=== PATIENT | male | born 1980 | race African-American/Black ===

== ENCOUNTER 2021-10-10 11:07 | Inpatient (IN) | payer OTHER ==
[~2021-10-10] VITALS: Ht 165.1 cm; Wt 127.5 kg
--- NOTE | 2021-10-10 11:10 | NUR ---
COVID TEST COLLECTED AND SENT TO LAB
--- NOTE | 2021-10-10 11:15 | NUR ---
BIB [facility] HALFWAY FOR ON AND OFF CHEST PAIN/SOB X 4 DAYS. PT A/OX4; TOLERATING RA WELL AT THIS TIME WITH NO SOB. DENIES PAIN AT THIS TIME
--- NOTE | 2021-10-10 11:26 | NUR ---
MORALE OFFICER AT PT'S BEDSIDE
--- NOTE | 2021-10-10 11:44 | NUR ---
INSERTED IV RAC #20G S/L; PATEND AND INTACT.
--- NOTE | 2021-10-10 11:45 | NUR ---
LABS WERE COLLECTED AND SENT TO LAB
[2021-10-10] MEDS ORDERED: IOHEXOL-350 100 ML VIAL IV ONE (11:50)
[2021-10-10] MEDS ORDERED: CT SWABBABLE VALVE TRANS SET 1 EA INFUS.SET MC ONE (11:50)
[2021-10-10] MEDS ORDERED: IV NS 0.9% 250 ML IV ONE (11:50)
--- NOTE | 2021-10-10 11:52 | NUR ---
PT TAKEN TO CT VIA KO
[2021-10-10 11:53] LABS: BASOPHILS % (AUTO) 0.4 % (0.0-2.0); EOSINOPHILS % (AUTO) 2.6 % (0.0-6.0); HEMATOCRIT 38 % (39-51); HEMOGLOBIN 12.5 g/dL (13.5-17.5); LYMPHOCYTES # (AUTO) 2.2 K/uL (0.8-4.8); LYMPHOCYTES % (AUTO) 18.3 % (20.0-44.0); MEAN CORPUSCULAR HGB CONC 33 g/dl (31.0-36.0); MEAN CORPUSCULAR VOLUME 93 fL (80-96); MONOCYTES # (AUTO) 1.2 K/uL (0.1-1.30); NEUTROPHILS # (AUTO) 8.3 K/uL (1.8-8.9); NEUTROPHILS % (AUTO) 68.7 % (43.0-81.0); PLATELET COUNT (AUTO) 404 K/uL (150-450); WHITE BLOOD COUNT (AUTO) 12.1 K/uL (4.3-11.0)
[2021-10-10] MEDS ORDERED: ALBU8.5H8 IH (11:56)
[2021-10-10] MEDS ORDERED: DOCU-141 PO (11:57)
[2021-10-10] MEDS ORDERED: MAGN400O6 PO (11:57)
[2021-10-10] MEDS ORDERED: NA P133E RC (11:57)
[2021-10-10] MEDS ORDERED: IBUP-1953 PO (11:57)
[2021-10-10] MEDS ORDERED: BENZ200C53 PO (11:57)
[2021-10-10] MEDS ORDERED: BISA10SU11 RC (11:57)
[2021-10-10] MEDS ORDERED: IPRA0.2S9 IH (11:57)
[2021-10-10] MEDS ORDERED: APIX5TAB PO (11:57)
[2021-10-10] MEDS ORDERED: FLUT1BLS IH (11:57)
[2021-10-10] MEDS ORDERED: METF-440 PO (11:57)
[2021-10-10] MEDS ORDERED: FAMO20TA8 PO (11:57)
[2021-10-10] MEDS ORDERED: CHOL100062 PO (11:57)
[2021-10-10] MEDS ORDERED: ASCO-352 PO (11:57)
--- NOTE | 2021-10-10 12:04 | NUR ---
PT RETURNED TO ER BED [address]
[2021-10-10 12:05] LABS: CARBON DIOXIDE 30 mmol/L (21-32); CHLORIDE 105 mmol/L (98-107); CREATININE 0.8 mg/dL (0.6-1.3); GLUCOSE 122 mg/dL (74-106); POTASSIUM 3.7 mmol/L (3.5-5.1); SODIUM SERUM 142 mmol/L (136-145); UREA NITROGEN, BLOOD 9 mg/dL (7-18)
[2021-10-10 12:20] LABS: ALANINE AMINOTRANSFERASE 42 U/L (12-78); ALBUMIN 3.1 g/dL (3.4-5.0); ALKALINE PHOSPHATASE 43 U/L (46-116); ASPARTATE AMINOTRANSFERASE 15 U/L (15-37); BILIRUBIN,DIRECT 0.1 mg/dL (0.0-0.2); BILIRUBIN,TOTAL 0.2 mg/dL (0.2-1.0); TOTAL PROTEIN, SERUM 6.9 g/dL (6.4-8.2)
[2021-10-10] MEDS ORDERED: DEXAMETHASONE SOD PHOSPHATE 10 MG/ML VIAL IV ONE (13:00)
[2021-10-10] MEDS ORDERED: DEXAMETHASONE SOD PHOSPHATE 10 MG/ML VIAL ONE (13:29)
--- NOTE | 2021-10-10 17:03 | NUR ---
REPORT GIVEN TO ANISH SANFORD. AWAITING TRANSFER TO FLOOR.
--- NOTE | 2021-10-10 17:03 | NUR ---
BED 105 GIVEN
--- NOTE | 2021-10-10 17:10 | NUR ---
RN NOTE PATIENT ADMITTED TO ROOM 105, PATIENT ALERT AND ORIENTED ON O2 VIA NC@ 5LPM O2 SAT OF 98% AT REST, BODY ASSESSMENT DONE, WILL CONTINUE PLAN OF CARE.
[2021-10-10 17:35] VITALS: BP 121/82
--- NOTE | 2021-10-10 19:00 | NUR ---
RN NOTE PATIENT IN BED, AWAKER ALERT AND ORIENTED X4 ON O2 VIA NC @ 5LPM O2 SAT OF 97% AT REST, R/O COVID ISOLATION PRECAUTION AT THIS TIME, WILL CONTINUE PLAN OF CARE WILL ENDORSE TO NOC SHIFT.
[2021-10-10 20:00] VITALS: BP 100/61
[2021-10-10] MEDS ORDERED: ONDANSETRON HCL/PF 4 MG/2 ML VIAL IVP PRN (20:30)
[2021-10-10] MEDS ORDERED: BENZONATATE 100 MG CAPSULE PO PRN (20:30)
[2021-10-10] MEDS ORDERED: ACETAMINOPHEN 325 MG TABLET PO PRN (20:30)
[2021-10-10] MEDS ORDERED: IBUPROFEN 400 MG TABLET PO PRN (20:30)
[2021-10-10] MEDS ORDERED: DEXTROSE 50%-WATER 50 ML DISP.SYRIN IV PRN (20:30)
[2021-10-10] MEDS ORDERED: ZOLPIDEM TARTRATE 5 MG TABLET PO PRN (20:30)
[2021-10-10] MEDS ORDERED: Z GUARD REMEDY 2 OZ OINT TP PRN (20:30)
--- NOTE | 2021-10-10 20:44 | NUR ---
RN NOTES: RESPIRATORY NOTIFIED - ([facility]) - 6 MIN WALK TEST SCHEDULED FOR MORNING SHIFT.
--- NOTE | 2021-10-10 20:59 | NUR ---
RN OPENING NOTES: RECEIVED PATIENT FROM DAY SHIFT, PATIENT STABLE, ON 4L NC, AWAKE AND ORIENTED X4 IN BED, BED AT LOWEST POSITION, PATIENT SHOWS NO SIGNS OF SOB OR DISTRESS AT THIS TIME, BED ALARM IS ON, CALL LIGHT WITHIN REACH, BED LOCKED AND IN POSITION AT THE LOWEST POSITION. ORDERS FOR PATIENT CAME IN AT 2029, WILL IMPLEMENT PLAN OF CARE AND CONTINUE TO MONITOR.
[2021-10-10] MEDS: DEXAMETHASONE SOD PHOSPHATE 10 MG/ML VIAL IV SCH (21:22)
[2021-10-10] MEDS: APIXABAN 5 MG TABLET PO SCH (21:23)
[2021-10-10] MEDS: BLOOD SUGAR DIAGNOSTIC 1 EACH STRIP IN SCH (21:23)
[2021-10-10] MEDS: INSULIN REGULAR, HUMAN 100 UNIT/ML 3 ML VIAL SQ PRN (21:35)
[2021-10-10 22:22] LABS: ABG BASE EXCESS 1.9 mmol/L; ABG OXYGEN SATURATION 98.8 % (92.0-98.5); ABG PCO2 37.1 mmHg (35.0-45.0); ABG PH 7.456 (7.350-7.450); ABG PO2 147.2 mmHg (75.0-100.0); AaDO2 95.3 mmHg; COHb 0.3 % (0.5-1.5); MetHb 0.2 % (0.0-1.5); O2Hb 98.3 % (94.0-97.0); SITE, ABG Left Radial; VENT MODE, BG Nasal Cannula 5LPM O2
--- NOTE | 2021-10-10 22:56 | NUR ---
RT NOTE ABG DONE. RESULTS GIVEN TO JUVENAL AARON.
[2021-10-10] MEDS: IPRATROPIUM BROMIDE 14 GM INHALER (or 12.9 GM) INH SCH (23:56)
[2021-10-10] MEDS: ALBUTEROL SULFATE INH 18 GM HFA.AER.AD IH SCH (23:57)
[2021-10-11] MEDS: IPRATROPIUM BROMIDE 14 GM INHALER (or 12.9 GM) INH SCH ×2 (02:33→23:30)
[2021-10-11] MEDS: ALBUTEROL SULFATE INH 18 GM HFA.AER.AD IH SCH ×2 (02:33→23:30)
--- NOTE | 2021-10-11 02:33 | NUR ---
RT NOTE PT REFUSED TX. SAID IT MAKES HIS HEART FAST AND FEEL FUNNY. RN NOTIFIED NO SOB OR INCREASED WOB OR S/S OF ACUTE RESPIRATORY DISTRESS. WILL CONTINUE TO MONITOR.
[2021-10-11 04:00] VITALS: BP 111/71
--- NOTE | 2021-10-11 06:39 | NUR ---
RN CLOSING NOTE: PATIENT IN BED, RESTING WITH NO DISTRESS, NO SOB NOTED. NC AT 4L, BED AT LOWEST POSITION, SIDE RAILS UP X2, CALL LIGHT WITHIN REACH, WILL CONTINUE TO MONITOR UNTIL ENDORSEMENT TO DAY SHIFT.
[2021-10-11 07:20] LABS: ALBUMIN 3.1 g/dL (3.4-5.0); BILIRUBIN,TOTAL 0.2 mg/dL (0.2-1.0); CALCIUM, SERUM 9.1 mg/dL (8.5-10.1); CREATININE 0.8 mg/dL (0.6-1.3); MAGNESIUM 2.2 mg/dL (1.8-2.4); PHOSPHORUS 4.2 mg/dL (2.5-4.9); POTASSIUM 4.1 mmol/L (3.5-5.1); TOTAL PROTEIN, SERUM 7.1 g/dL (6.4-8.2)
--- NOTE | 2021-10-11 07:22 | NUR ---
RN NOTE PATIENT IS IN BED WITH HOB AT SEMI FOWLERS POSITION. PATIENT IS ON 4L NC WITH NO SIGNS OF LABORED BREATHING. PATIENT IS AOX4. RAC 20 IS PATENT AND INTACT. BED IS LOCKED IN THE LOWEST POSITION, 3 GUARD RAILS RAISED, CALL JOSEPH WITHIN REACH, AND ALL HOSPITAL SAFETY PRECAUTIONS ARE BEING FOLLOWED. WILL CONTINUE TO MONITOR THROUGHOUT SHIFT.
[2021-10-11 07:27] LABS: BASOPHILS % (AUTO) 0.2 % (0.0-2.0); HEMATOCRIT 36 % (39-51); HEMOGLOBIN 12.2 g/dL (13.5-17.5); LYMPHOCYTES # (AUTO) 1.1 K/uL (0.8-4.8); MEAN CORPUSCULAR HGB CONC 34 g/dl (31.0-36.0); MEAN CORPUSCULAR VOLUME 92 fL (80-96); MONOCYTES % (AUTO) 6.3 % (2.0-12.0); NEUTROPHILS # (AUTO) 13.8 K/uL (1.8-8.9); NEUTROPHILS % (AUTO) 86.5 % (43.0-81.0); PLATELET COUNT (AUTO) 444 K/uL (150-450); RED BLOOD CELL COUNT(AUTO) 3.91 MIL/uL (4.5-6.0); WHITE BLOOD COUNT (AUTO) 15.9 K/uL (4.3-11.0)
[2021-10-11] MEDS: BLOOD SUGAR DIAGNOSTIC 1 EACH STRIP IN SCH ×4 (07:30→21:33)
[2021-10-11 07:32] LABS: THYROID STIMULATING HORMONE 0.483 uIU/mL (0.358-3.74)
[2021-10-11] MEDS: INSULIN REGULAR, HUMAN 100 UNIT/ML 3 ML VIAL SQ PRN ×3 (08:09→21:51)
[2021-10-11] MEDS: METFORMIN 500 MG TABLET PO SCH ×2 (08:11→16:56)
[2021-10-11] MEDS: ASCORBIC ACID 500 MG TABLET PO SCH (08:11)
[2021-10-11] MEDS: APIXABAN 5 MG TABLET PO SCH ×2 (08:11→21:35)
[2021-10-11] MEDS: CHOLECALCIFEROL 1,000 UNIT TABLET (VIT D3) PO SCH (08:11)
[2021-10-11] MEDS: FAMOTIDINE (20 MG) 20 MG TABLET PO SCH (08:11)
[2021-10-11] MEDS: DEXAMETHASONE SOD PHOSPHATE 10 MG/ML VIAL IV SCH (08:12)
[2021-10-11] MEDS ORDERED: CHOLECALCIFEROL (VITAMIN D 3) 400 UNIT TABLET PO SCH (09:00)
[2021-10-11] MEDS ORDERED: FLUTICASONE/VILANTEROL 1 EACH BLST.W.DEV IH SCH (09:00)
[2021-10-11] MEDS: methylPREDNISolone SOD SUCC 125 MG/2ML VIAL IV SCH ×2 (10:22→16:56)
[2021-10-11] MEDS: IPRATROPIUM NEB FS 0.5 MG/2.5 ML AMPUL.NEB NEB SCH ×4 (11:30→23:30)
[2021-10-11] MEDS: ALBUTEROL HALF STRENGTH 1.25 MG/3 ML VIAL.NEB NEB SCH ×4 (11:30→23:30)
--- NOTE | 2021-10-11 12:02 | NUR ---
RT HHN tx not given at this time due to pending PCR, no SOB or respiratory distress noted.
[2021-10-11 16:00] VITALS: BP 119/66
--- NOTE | 2021-10-11 18:37 | NUR ---
RN NOTE PATIENT IS IN BED WITH HOB AT SEMI FOWLERS POSITION. PATIENT IS ON 4L NC WITH NO SIGNS OF LABORED BREATHING. PATIENT IS AOX4. RAC 20 IS PATENT AND INTACT. BED IS LOCKED IN THE LOWEST POSITION, 3 GUARD RAILS RAISED, CALL JOSEPH WITHIN REACH, AND ALL HOSPITAL SAFETY PRECAUTIONS ARE BEING FOLLOWED. ALL DUE MEDS GIVEN AND PATIENT REMAINED STABLE THROUGHOUT SHIFT. WILL ENDORSE TO ONE PIECE EXPANSION MAKER HAND RN.
--- NOTE | 2021-10-11 19:15 | NUR ---
MS/RN OPENING NOTE RECEIVED PATIENT RESTING IN BED. AWAKE, ALERT AND ORIENTED X 4. ABLE TO MAKE NEEDS KNOWN. DENIES PAIN AT THIS TIME. CONTINUES ON O2 4L VIA NC WITH NO S/SX OF RESPIRATORY DISTRESS NOTED. IV ACCESS TO RIGHT AC #20G INTACT, PATENT AND SALINE LOCKED. CONTINUES ON PRECAUTIONS FOR PENDING COVID-19 PRC TEST. CALL LIGHT WITHIN REACH. ASPIRATION, FALL AND SAFETY PRECAUTIONS MAINTAINED. WILL CONTINUE TO MONITOR.
--- NOTE | 2021-10-11 20:08 | NUR ---
RT NOTE HHN TX NOT GIVEN AT THIS TIME DUE TO PENDING PCR. NO RESPIRATORY DISTRESS NOTED AT THIS TIME. WILL CONTINUE TO MONITOR PATIENT.
[2021-10-12] VITALS: BP 119/66
[2021-10-12] MEDS: ALBUTEROL HALF STRENGTH 1.25 MG/3 ML VIAL.NEB NEB SCH ×6 (00:40→19:58)
[2021-10-12] MEDS: IPRATROPIUM NEB FS 0.5 MG/2.5 ML AMPUL.NEB NEB SCH ×6 (00:40→19:58)
[2021-10-12] MEDS: ALBUTEROL SULFATE INH 18 GM HFA.AER.AD IH SCH ×6 (03:30→23:30)
[2021-10-12] MEDS: IPRATROPIUM BROMIDE 14 GM INHALER (or 12.9 GM) INH SCH ×6 (03:30→23:30)
--- NOTE | 2021-10-12 06:15 | NUR ---
MS/RN CLOSING NOTE PATIENT CURRENTLY SLEEPING IN BED. ALERT AND ORIENTED X 4. ABLE TO MAKE NEEDS KNOWN. DENIES PAIN AT THIS TIME. CONTINUES ON O2 4L VIA NC WITH NO S/SX OF RESPIRATORY DISTRESS NOTED. IV ACCESS TO RIGHT AC #20G INTACT, PATENT AND SALINE LOCKED. CONTINUES ON PRECAUTIONS FOR PENDING COVID-19 PCR TEST. CALL LIGHT WITHIN REACH. ASPIRATION, FALL AND SAFETY PRECAUTIONS MAINTAINED. WILL ENDORSE PLAN OF CARE TO ONCOMING SHIFT.
[2021-10-12 06:41] LABS: BILIRUBIN,TOTAL 0.1 mg/dL (0.2-1.0); CALCIUM, SERUM 8.7 mg/dL (8.5-10.1); CREATININE 0.8 mg/dL (0.6-1.3); MAGNESIUM 2.2 mg/dL (1.8-2.4); PHOSPHORUS 3.2 mg/dL (2.5-4.9); POTASSIUM 4.1 mmol/L (3.5-5.1); TOTAL PROTEIN, SERUM 6.4 g/dL (6.4-8.2)
[2021-10-12] MEDS: BLOOD SUGAR DIAGNOSTIC 1 EACH STRIP IN SCH ×4 (07:55→22:41)
[2021-10-12 08:00] VITALS: BP 94/48
[2021-10-12] MEDS: METFORMIN 500 MG TABLET PO SCH ×2 (08:22→16:22)
[2021-10-12] MEDS: FAMOTIDINE (20 MG) 20 MG TABLET PO SCH (08:22)
[2021-10-12] MEDS: ASCORBIC ACID 500 MG TABLET PO SCH (08:22)
[2021-10-12] MEDS: CHOLECALCIFEROL 1,000 UNIT TABLET (VIT D3) PO SCH (08:22)
[2021-10-12] MEDS: APIXABAN 5 MG TABLET PO SCH ×2 (08:25→21:18)
[2021-10-12] MEDS: methylPREDNISolone SOD SUCC 125 MG/2ML VIAL IV SCH ×2 (08:25→16:22)
[2021-10-12] MEDS: INSULIN REGULAR, HUMAN 100 UNIT/ML 3 ML VIAL SQ PRN ×3 (08:27→22:40)
--- NOTE | 2021-10-12 10:13 | NUR ---
per [facility] covid negative pcr.
--- NOTE | 2021-10-12 12:00 | NUR ---
RN NOTE RECEIVED FAX FROM FACILITY. PCR NEGATIVE
[2021-10-12 16:00] VITALS: BP 106/58
--- NOTE | 2021-10-12 18:37 | NUR ---
RN NOTE PT PCR (-). A/OX4. 3L NC 96%. ABLE TO AMBULATE AND BRP. RAC #20G.
[2021-10-12 20:00] VITALS: BP 124/79
--- NOTE | 2021-10-12 20:00 | NUR ---
RN OPENING NOTE: RECEIVED PATIENT AWAKE IN BED, ALERT AND ORIENTED X4 ABLE TO VERBALIZE NEEDS, ON O2 AT 4LITERS VIA NC TOLERATING WELL O2 SAT OF 97% BREATHING EVEN AND UNLABORED, NO COMPLAINS OF CHEST PAIN NOTED, NO DISTRESS, BATHROOM PRIVILEGES WITH BED SIDE COMMODE, AMBULATORY, SKIN INTACT, ON CONSISTENT CARB DIET, WITH LEFT AC GAUGE 20, INTACT AND PATENT . ISOLATION PRECAUTION OBSERVED, SAFETY MEASURE OBSERVED, BED WHEELS LOCK, BED ALARM STILL CLEANER TUBE LIGHT WITHIN REACH, V/S STABLE AFEBRILE . DUE MEDS GIVEN ORDER NO ASE NOTED .WILL CONTINUE TO MONITOR. Addendum: 10/12/21 at 2319 by LEAH KEVIN RN PTS NOT ON COMODE HE IS ABLE TO GO TO BATHROOM.
--- NOTE | 2021-10-12 22:43 | NUR ---
MS RN NOTES BLOOD SUGAR FOR 10PM IS 322 8UNITS OF REGULAR INSULIN GIVEN PER SLIDING SCALE .WILL CHECK BLOOD SUGAR IN AM.
[2021-10-13 04:00] VITALS: BP 128/75
[2021-10-13] MEDS: IPRATROPIUM NEB FS 0.5 MG/2.5 ML AMPUL.NEB NEB SCH ×4 (04:04→16:02)
[2021-10-13] MEDS: ALBUTEROL HALF STRENGTH 1.25 MG/3 ML VIAL.NEB NEB SCH ×4 (04:04→16:02)
[2021-10-13] MEDS: ALBUTEROL SULFATE INH 18 GM HFA.AER.AD IH SCH ×4 (04:04→15:30)
[2021-10-13] MEDS: IPRATROPIUM BROMIDE 14 GM INHALER (or 12.9 GM) INH SCH ×4 (04:04→15:30)
--- NOTE | 2021-10-13 07:18 | NUR ---
RN CLOSING NOTE: PATIENT STABLE AND SLEEPING IN BED. SATURATING WELL ON ON 3 LITERS OF 02 VIA NC. TOLERATING, NO DISTRESS, NO SOB NOTED. BED AT LOWEST POSITION, SIDE RAILS UP X2, CALL LIGHT WITHIN REACH, WILL CONTINUE TO MONITOR WILL ENDORSE TO DAY SHIFT FOR CONTINUITY OF CARE.
--- NOTE | 2021-10-13 07:23 | NUR ---
RN OPENING NOTE PATIENT RECEIVED IN BED, RESTING. PATIENT ON 3L O2 NC WITH NO SIGNS OF LABORED BREATHING AT THIS TIME. LEFT AC 20G IV IN PLACE, PATENT WITH NO SIGNS OF INFILTRATION. NO SIGNS OF DISTRESS NOTED AT THIS TIME. BED LOCKED AND IN LOWEST POSITION, CALL LIGHT WITHIN REACH, 2 SIDE RAILS UP. ALL SAFETY MEASURES IMPLEMENTED. WILL CONTINUE TO MONITOR.
[2021-10-13] MEDS: BLOOD SUGAR DIAGNOSTIC 1 EACH STRIP IN SCH ×3 (07:52→17:27)
[2021-10-13] MEDS: METFORMIN 500 MG TABLET PO SCH ×2 (08:04→16:05)
[2021-10-13] MEDS: methylPREDNISolone SOD SUCC 125 MG/2ML VIAL IV SCH (08:04)
[2021-10-13] MEDS: ASCORBIC ACID 500 MG TABLET PO SCH (08:05)
[2021-10-13] MEDS: CHOLECALCIFEROL 1,000 UNIT TABLET (VIT D3) PO SCH (08:05)
[2021-10-13] MEDS: FAMOTIDINE (20 MG) 20 MG TABLET PO SCH (08:05)
[2021-10-13] MEDS: APIXABAN 5 MG TABLET PO SCH (08:07)
[2021-10-13] MEDS: INSULIN REGULAR, HUMAN 100 UNIT/ML 3 ML VIAL SQ PRN ×2 (08:07→17:28)
[2021-10-13 08:23] LABS: BASOPHILS # (AUTO) 0.1 K/uL (0.0-0.2); BASOPHILS % (AUTO) 0.5 % (0.0-2.0); EOSINOPHILS % (AUTO) 0.4 % (0.0-6.0); HEMATOCRIT 39 % (39-51); HEMOGLOBIN 13.1 g/dL (13.5-17.5); LYMPHOCYTES # (AUTO) 2.1 K/uL (0.8-4.8); LYMPHOCYTES % (AUTO) 7.4 % (20.0-44.0); MEAN CORPUSCULAR HGB CONC 33 g/dl (31.0-36.0); MEAN CORPUSCULAR VOLUME 95 fL (80-96); MONOCYTES # (AUTO) 3.2 K/uL (0.1-1.30); MONOCYTES % (AUTO) 11.1 % (2.0-12.0); NEUTROPHILS # (AUTO) 23.1 K/uL (1.8-8.9); NEUTROPHILS % (AUTO) 80.6 % (43.0-81.0); PLATELET COUNT (AUTO) 352 K/uL (150-450); RED BLOOD CELL COUNT(AUTO) 4.13 MIL/uL (4.5-6.0); WHITE BLOOD COUNT (AUTO) 28.6 K/uL (4.3-11.0)
[2021-10-13 08:42] LABS: BILIRUBIN,TOTAL 0.1 mg/dL (0.2-1.0); CALCIUM, SERUM 8.9 mg/dL (8.5-10.1); CREATININE 0.6 mg/dL (0.6-1.3); MAGNESIUM 2.4 mg/dL (1.8-2.4); PHOSPHORUS 3.5 mg/dL (2.5-4.9); TOTAL PROTEIN, SERUM 6.6 g/dL (6.4-8.2)
[2021-10-13 12:00] VITALS: BP 114/53
--- NOTE | 2021-10-13 13:49 | NUR ---
RN PATIENT DESATURATING TO 84% ON ROOM AIR AT REST. PLACED BACK ON 2L O2 NC AT THIS TIME. MD AWARE. WILL CONTINUE TO MONITOR.
--- NOTE | 2021-10-13 18:47 | NUR ---
RN CLOSING NOTE PATIENT IN BED, AWAKE, A&OX4. PATIENT ON 2L O2 NC WITH NO SIGNS OF LABORED BREATHING AT THIS TIME. LEFT AC 20G IV IN PLACE, PATENT WITH NO SIGNS OF INFILTRATION. NO SIGNS OF DISTRESS NOTED AT THIS TIME. ALL NEEDS ATTENDED DURING SHIFT. PATIENT REMAINS STABLE AND READY FOR DISCHARGED. BED LOCKED AND IN LOWEST POSITION, CALL LIGHT WITHIN REACH, 2 SIDE RAILS UP. ALL SAFETY MEASURES IMPLEMENTED. WILL ENDORSE TO INSTRUCTIONAL MATERIALS DIRECTOR NURSE.
--- NOTE | 2021-10-13 19:00 | NUR ---
ms rn notes received pts in bed awake a/ox 3 . for discharged tonite home , discharge instruction given to pts , verbalized understanding ,discharged with oxygen .
--- NOTE | 2021-10-13 19:45 | NUR ---
ms rn notes Pts was picked up by brother discharged home with oxygen tank and o2 concentrator in stable condition . all discharge instruction given to pts.
[2021-10-14] MEDS ORDERED: methylPREDNISolone SOD SUCC 40 MG/ML VIAL IV SCH (09:00)
== END 2021-10-13 19:45 | disposition home or self-care (01) | DRG 133 ==
LOC: ER 11:12 → MEDSG1 17:03
PROVIDERS: ADMIT Nurse Practitioner Acute Care
DX: J96.21 Acute and chronic respiratory failure with hypoxia (principal); D68.59 Other primary thrombophilia; J12.89 Other viral pneumonia; Z99.81 Dependence on supplemental oxygen; U09.9 Post COVID-19 condition, unspecified; E11.9 Type 2 diabetes mellitus without complications; E66.01 Morbid (severe) obesity due to excess calories; J45.909 Unspecified asthma, uncomplicated; K21.9 Gastro-esophageal reflux disease without esophagitis; Z20.822 Contact with and (suspected) exposure to COVID-19; Z88.1 Allergy status to other antibiotic agents; Z79.84 Long term (current) use of oral hypoglycemic drugs; Z79.01 Long term (current) use of anticoagulants; Z79.51 Long term (current) use of inhaled steroids; Z79.899 Other long term (current) drug therapy; Z68.42 Body mass index [BMI] 45.0-49.9, adult
CPT/HCPCS: 36415; 36600; 71045-TC; 71250-TC; 80048-TC; 80053-TC; 80061-TC; 80076-TC; 82550-TC; 82728-TC; 82962-TC; 83605-TC; 83735-TC; 83880; 84100-TC; 84443-TC; 84484-TC; 85025-TC; 85378-TC; 86140-TC; 87081-TC; 93307-TC; 94799-TC; G0378; J1100; J1815; J2930; J7050; Q9967; U0003